=== PATIENT | female | born 1950 | race Caucasian/White ===

== ENCOUNTER 2021-02-09 22:20 | Observation (INO) ==
[2021-02-10 00:52] LABS: ABS Basophils 0.1 10^3/ul (0-0.2); ABS Eosinophils 0.1 10^3/ul (0-0.6); ABS Lymphocytes 2.8 10^3/ul (1.0-4.8); ABS Monocytes 0.8 10^3/ul (0-0.8); ABS Neutrophils 6.9 10^3/ul (1.5-7.7); Hematocrit 40 % (35-47); Lymphocyte % 25.9 %; Mean Corpuscular HGB Conc 35 g/dL (31-36); Mean Corpuscular Hemoglobin 32 pg (27-31); Mean Corpuscular Volume 89 fL (80-97); Mean Platelet Volume 8.3 fL (7.4-10.4); Nucleated Red Blood Cells % 0.1; Platelet Count 306 10^3/uL (150-450); Red Blood Count 4.45 10^6 /uL (3.70-4.87); Red Cell Distribution Width 14 % (10-15); White Blood Count 10.6 10^3/uL (3.5-10.8)
[2021-02-10 01:00] LABS: ALT 26 U/L (7-52); AST 23 U/L (13-39); Albumin 4.4 g/dL (3.2-5.2); Albumin/Globulin Ratio 1.5 (1-3); Alkaline Phosphatase 85 U/L (35-149); Anion Gap 7 mmol/L (2-11); Blood Urea Nitrogen 13 mg/dL (6-24); CO2 Carbon Dioxide 27 mmol/L (22-32); Calcium 9.6 mg/dL (8.6-10.3); Chloride 103 mmol/L (101-111); EGFR African American 71.7 (>60); EGFR Non-African American 59.3 (>60); Glucose 106 mg/dL (70-100); Potassium 3.9 mmol/L (3.5-5.0); Sodium 137 mmol/L (135-145); Total Protein 7.4 g/dL (6.4-8.9)
[2021-02-10 01:44] LABS: Troponin I 0.01 ng/mL (<0.03)
[2021-02-10] MEDS ORDERED: Nicotine PATCH 21 MG/24 HR PATCH TRANSDERM ONE (04:04)
[2021-02-10 04:57] LABS: Calcium 9.5 mg/dL (8.6-10.3); EGFR African American 72.6 (>60); Potassium 3.6 mmol/L (3.5-5.0)
[2021-02-10] MEDS ORDERED: Lactated Ringers 1000 ml BAG 1,000 ML IV SCH (05:00)
[2021-02-10 05:01] LABS: Troponin I 0.01 ng/mL (<0.03)
[2021-02-10 06:13] LABS: TSH Ultra Thyroid Stim Horm 0.21 mcIU/mL (0.34-5.60)
[2021-02-10 06:25] LABS: Folate 19.02 ng/mL (5.90-24.80)
[2021-02-10 06:33] LABS: ABS Basophils 0.1 10^3/ul (0-0.2); ABS Eosinophils 0.1 10^3/ul (0-0.6); ABS Lymphocytes 3.4 10^3/ul (1.0-4.8); ABS Monocytes 0.7 10^3/ul (0-0.8); ABS Neutrophils 5.1 10^3/ul (1.5-7.7); Eosinophil % 1.6 %; Hematocrit 41 % (35-47); Hemoglobin 14.2 g/dL (12.0-16.0); Lymphocyte % 36.3 %; Mean Corpuscular HGB Conc 35 g/dL (31-36); Mean Corpuscular Hemoglobin 31 pg (27-31); Mean Corpuscular Volume 90 fL (80-97); Platelet Count 311 10^3/uL (150-450); Red Blood Count 4.54 10^6 /uL (3.70-4.87); Red Cell Distribution Width 14 % (10-15); White Blood Count 9.4 10^3/uL (3.5-10.8)
[2021-02-10 07:38] LABS: Free T4 1.06 ng/dL (0.61-1.12)
[2021-02-10 15:36] LABS: C Reactive Protein 5.83 mg/L (<8.01)
[2021-02-10 20:48] VITALS: BP 121/62
== END 2021-02-10 21:00 | disposition home or self-care (01) ==
LOC: MEDTELE 22:20 → ED 22:20
PROVIDERS: ADMIT Pediatrics; ATTEND Internal Medicine